=== PATIENT | female | born 1930 | race Caucasian/White ===

== ENCOUNTER 2016-10-17 19:29 | Emergency (ER) | payer MEDICARE, OTHER ==
[~2016-10-17] VITALS: Ht 165.1 cm; Wt 79.0 kg
[2016-10-17] MEDS ORDERED: PRAVASTATIN40 MG PO (19:37)
[2016-10-17] MEDS ORDERED: KLOR-CON M2020 MEQ PO (19:38)
[2016-10-17] MEDS ORDERED: ZETIA10 MG PO (19:38)
[2016-10-17] MEDS ORDERED: LOSARTAN POT50 MG PO (19:39)
[2016-10-17] MEDS ORDERED: XALATAN0.005 % OU (19:39)
[2016-10-17] MEDS ORDERED: FOLIC ACID1 MG PO (19:39)
[2016-10-17] MEDS ORDERED: COREG6.25 MG PO (19:40)
[2016-10-17] MEDS ORDERED: BUMETANIDE1 MG PO (19:40)
[2016-10-17] MEDS ORDERED: BAYER ASPIRIN E81 MG PO (19:40)
[2016-10-17] MEDS ORDERED: COLACE100 MG PO (19:41)
[2016-10-17] MEDS ORDERED: VITAMIN B-12500 MCG PO (19:41)
[2016-10-17] MEDS ORDERED: ACETAMIN325 MG PO (19:49)
[2016-10-17] MEDS ORDERED: ELIQUIS2.5 MG PO (19:49)
[2016-10-17] MEDS ORDERED: LEVEMIR FL100 UNIT/M SC (19:50)
[2016-10-17] MEDS ORDERED: NAPROSYN500 MG PO (20:25)
[2016-10-17 22:10] VITALS: BP 139/73
== END 2016-10-17 22:10 ==
LOC: ED 19:29
DX: S70.02XA Contusion of left hip, initial encounter (principal); S83.92XA Sprain of unspecified site of left knee, initial encounter; S83.91XA Sprain of unspecified site of right knee, initial encounter; S93.601A Unspecified sprain of right foot, initial encounter; W07.XXXA Fall from chair, initial encounter; Y92.099 Unspecified place in other non-institutional residence as the place of occurrence of the external cause

== ENCOUNTER → 2018-07-04 | Outpatient (REF) | payer MEDICARE, OTHER ==
[~2018-07-04] MED LIST: ACETAMIN325 MG PO; BAYER ASPIRIN E81 MG PO; BUMETANIDE1 MG PO; COLACE100 MG PO; COREG6.25 MG PO; ELIQUIS2.5 MG PO; FOLIC ACID1 MG PO; KLOR-CON M2020 MEQ PO; LEVEMIR FL100 UNIT/M SC; LOSARTAN POT50 MG PO; NAPROSYN500 MG PO; PRAVASTATIN40 MG PO; VITAMIN B-12500 MCG PO; XALATAN0.005 % OU; ZETIA10 MG PO
== END | disposition home or self-care (01) ==
LOC: DI 11:51
PROVIDERS: ATTEND Internal Medicine
DX: M25.511 Pain in right shoulder (principal)